=== PATIENT | female | born 1950 | race Hispanic/Latino ===

== ENCOUNTER 2018-04-26 21:49 | Emergency (ER) | payer MEDICARE ==
--- NOTE | 2018-04-26 23:58 | XRay Report ---
FINAL REPORT EXAM: XR FOREARM LT HISTORY: injury TECHNIQUE: Frontal and lateral views left forearm Comparison: None FINDINGS: There is a comminuted, angulated and displaced fracture of the distal metaphysis and epiphysis of the radius that involves the articular surface. It is unclear whether not there is a fracture of the distal ulna. There is diffuse soft tissue swelling of the forearm. IMPRESSION: 1. Comminuted, angulated and displaced fracture of the distal metaphysis and epiphysis of the radius that involve the articular surface. 2. Unclear whether or not there is a fracture of the distal ulna. 3. Diffuse soft tissue swelling.
--- NOTE | 2018-04-27 00:09 | Emergency Department Report ---
HPI - General Time Seen by Provider: 04/26/18 23:17 - HPI HPI: Room 17 The patient is a 67-year-old female presenting with a chief complaint of left wrist injury. The patient is currently at [facility] for suicidal and homicidal ideation. The patient is a poor historian states she does not know what happened to her left wrist. Staff at [facility] state that the patient was reportedly combative on another unit when they were transferred to their unit he noticed the swelling and blood coming from the patient's left wrist. The time of injury is unknown. Location: Left wrist Duration: [See above] Quality: Pain Severity: Moderate Modifying factors: Movement increases pain Context: [see above] Mode of transportation: [not driving] ED Past Medical Hx - Past Medical History Additional medical history: Suicidal ideation - Family History Family history: no significant - Social History Smoking Status: Unknown if ever smoked Substance Use Type: None - Medications Home Medications: Home Medications Medication Instructions Recorded Confirmed Last Taken Type HYDROcodone/APAP 5-325 [Secor 1 - 2 each PO Q6HR PRN #30 tablet 04/27/18 Unknown Rx 5/325] ED Review of Systems ROS: Stated complaint: ARM PAIN Other details as noted in HPI Comment: Unobtainable due to pts medical conditions Physical Exam - Physical Exam Physical Exam: GENERAL: The patient is well-developed well-nourished female lying on stretcher not appear to be in acute distress. [] HEENT: Normocephalic. Atraumatic. Extraocular motions are intact. Patient has moist mucous membranes. NECK: Supple. Trachea midline CHEST/LUNGS: Clear to auscultation. There is no respiratory distress noted. HEART/CARDIOVASCULAR: Regular. There is no tachycardia. There is no gallop rub or murmur. ABDOMEN: Abdomen is soft, nontender. Patient has normal bowel sounds. There is no abdominal distention. SKIN: There is no rash. There is no edema. There is no diaphoresis. There is ecchymosis to the volar aspect of the left wrist. Linear abrasion measuring approximately 5 cm. NEURO: The patient is cooperative. The patient has normal speech MUSCULOSKELETAL: There is tenderness and swelling to the left wrist ED Course - Consultations Consultation #1: 04/27/18 00:05 Orthopedic surgery paged 04/27/18 00:[address] Levin. Picture of the patient's wrist abrasion as well as x-rays were sent via text to [phone]. Images reviewed by Dr. Levin. States patient may be placed in a splint and follow-up as an outpatient. States this is not an open fracture ED Medical Decision Making - Radiology Data Radiology results: report reviewed (left forearm x-ray), image reviewed (left forearm x-ray) interpreted by me: Left forearm [id number] radius fracture - Differential Diagnosis distal radius fracture Critical care attestation.: If time is entered above; I have spent that time in minutes in the direct care of this critically ill patient, excluding procedure time. ED Disposition Clinical Impression: Distal radius fracture, left, Acute pain of left wrist Disposition: [id number]/TX-[id number] PSY HOSP/PSY UNIT Is pt being admited?: No Does the pt Need Aspirin: No Condition: Stable Instructions: Wrist Fracture in Adults (ED) Additional Instructions: Return to the emergency department immediately should you develop worsening symptoms, fever, inability to tolerate food or liquid or any other concerns. Prescriptions: HYDROcodone/APAP 5-325 [Secor 5/325] 1 - 2 each PO Q6HR PRN #30 tablet PRN Reason: Pain Referrals: SUZY LEVIN MD [Staff Physician] - 3-5 Days (Dr. Levin is an orthopedic surgeon. Please follow up with him for further evaluation) Time of Disposition: 00:18
[2018-04-27] MEDS ORDERED: POLYSPORIN TP ONE (00:13)
[2018-04-27 06:14] VITALS: BP 130/70
== END 2018-04-27 04:00 ==
LOC: ED 21:49
DX: S52.502A Unspecified fracture of the lower end of left radius, initial encounter for closed fracture (principal); X58.XXXA Exposure to other specified factors, initial encounter; Y93.89 Activity, other specified; Y92.89 Other specified places as the place of occurrence of the external cause; Y99.8 Other external cause status
CPT/HCPCS: 99283